=== PATIENT | female | born 1970 | race Caucasian/White ===

== ENCOUNTER 2019-03-31 08:48 | Day surgery (SDC) | payer OTHER ==
[2019-03-31] VITALS (10 sets, daily range): BP systolic 97–134; BP diastolic 63–79; PULSE 64–74; RESP 16–17; Ht 152.4 cm; Wt 62.7 kg
[~2019-03-31] VITALS: Ht 152.4 cm; Wt 62.7 kg
[~2019-03-31 08:48] MED LIST: ATOR20TA38 PO; CIPROFLOXACIN 0.3% 2.5 ML OPH (PRE-OP) OPER SCH; CYCLOPENTOLATE 1% 2 ML OPH RIGHT EYE SCH; DICLOFENAC 0.1% 2.5 ML OPH (PRE-OP) OPER SCH; GENTAMICIN 0.3% 5 ML OPH (PRE-OP) OPER SCH; INSU100I33 SC; LANT3I SC; LISI40TA3 PO; METF100010 PO; NITR-58 PO; PHENYLephrine 2.5% 15 ML OPH (PRE-OP) OPER SCH; PROP40TA4 PO; SIMV40TA19 PO; TETRACAINE 0.5% 4 ML OPH (PRE-OP) OPER SCH; TROPICAMIDE 1% 15 ML OPH (PRE OP) OPER SCH
[2019-03-31] MEDS ORDERED: ONDANSETRON 4 MG INJ ONE (11:39)
[2019-03-31] MEDS ORDERED: FENTAnyl 50 MCG/ML VIAL ONE (11:39)
[2019-03-31] MEDS ORDERED: LIDOCAINE 1.5%/EPI MPF (SDV) 30 ML VIAL INJ ONE (11:42)
[2019-03-31] MEDS ORDERED: KETOROLAC 30 MG INJ ONE (11:49)
[2019-03-31] MEDS ORDERED: MIDAZOLAM 1 MG/ML 2 ML INJ ONE (11:53)
[2019-03-31] MEDS ORDERED: LIDOCAINE 1%/EPI 30 ML INJ ONE (12:28)
[2019-03-31] MEDS ORDERED: NA HYALURONATE/CHONDROITIN 0.5 ML SYG ONE (12:28)
[2019-03-31] MEDS ORDERED: OXYCODONE/ACETAMINOPHEN (5/325) TAB PO PRN ×2 (12:30)
[2019-03-31] MEDS ORDERED: ONDANSETRON 4 MG INJ IV PRN (12:30)
[2019-03-31] MEDS ORDERED: ACETAMINOPHEN 500 MG TAB PO PRN (12:30)
== END 2019-03-31 14:37 | disposition home or self-care (01) ==
LOC: SDS 08:48
PROVIDERS: ATTEND Ophthalmology
DX: H26.9 Unspecified cataract (principal)
CPT/HCPCS: 66984; 82962; 84703; J1885; J2250; J2405; J3010; V2632; Z7512; Z7610